=== PATIENT | female | born 1975 | race Caucasian/White ===

== ENCOUNTER 2017-11-20 09:06 | Emergency (ER) | payer OTHER ==
[~2017-11-20] VITALS: Ht 175.3 cm; Wt 104.3 kg
[2017-11-20] MEDS ORDERED: COZAAR50 MG (09:24)
== END 2017-11-20 13:37 | disposition home or self-care (01) ==
LOC: ER 09:06
DX: J32.8 Other chronic sinusitis (principal); R53.81 Other malaise